=== PATIENT | female | born 1935 | race Caucasian/White ===

== ENCOUNTER 2017-11-12 07:57 | Emergency (ER) | payer MEDICARE ==
[2017-11-12 09:26] LABS: BASO # 0.1 x10^3/uL (0.0-0.2); BASO % 0 % (0-3); EOS % 0 % (0-3); HEMATOCRIT 37.4 % (36.0-47.0); HEMOGLOBIN 12.3 g/dL (12.0-15.5); LYMPH # 1.7 x10^3/uL (1.0-4.8); LYMPH % 10 % (24-48); MEAN CORPUSCULAR HEMOGLOBIN 26 pg (25-35); MEAN CORPUSCULAR HGB CONC 33 g/dL (31-37); MEAN CORPUSCULAR VOLUME 80 fL (79-100); MONO # 0.7 x10^3/uL (0.0-1.1); MONO % 4 % (0-9); NEUT # 14.2 x10^3uL (1.8-7.7); NEUT % 85 % (31-73); PLATELET COUNT 356 x10^3/uL (140-400); RED BLOOD COUNT 4.67 x10^6/uL (3.50-5.40); RED CELL DISTRIBUTION WIDTH 17.2 % (11.5-14.5); WHITE BLOOD COUNT 16.7 x10^3/uL (4.0-11.0)
[2017-11-12 09:28] LABS: ADD MAN DIFF? YES
[2017-11-12 09:33] LABS: ANION GAP 12 (6-14); BLOOD UREA NITROGEN 20 mg/dL (7-20); BUN/CREATININE RATIO 20 (6-20); CALCIUM 8.8 mg/dL (8.5-10.1); CARBON DIOXIDE 24 mmol/L (21-32); CHLORIDE 102 mmol/L (98-107); GFR 52.8; GLUCOSE 131 mg/dL (70-99); SODIUM 138 mmol/L (136-145)
[2017-11-12 09:39] LABS: ALBUMIN 3.6 g/dL (3.4-5.0); ALBUMIN/GLOBULIN RATIO 1.1 (1.0-1.7); ALK PHOS 89 U/L (46-116); ALT (SGPT) 18 U/L (14-59); AST (SGOT) 24 U/L (15-37); CREATINE KINASE 671 U/L (26-192); TOTAL BILIRUBIN 0.5 mg/dL (0.2-1.0)
[2017-11-12 09:43] LABS: TROPONINI < 0.017 ng/mL (0.000-0.055)
[2017-11-12] MEDS ORDERED: fentaNYL PF VIAL 100 MCG/2 ML VIAL IV (10:00)
[2017-11-12] MEDS ORDERED: fentaNYL PF VIAL 100 MCG/2 ML VIAL (10:08)
[2017-11-12] MEDS: fentaNYL PF VIAL 100 MCG/2 ML VIAL IV (10:12)
[2017-11-12 10:52] LABS: % BANDS 4 % (0-9); % BASOS 1 % (0-3); % EOS 1 % (0-5); % LYMPHS 12 % (24-48); % MONOS 1 % (0-10); % SEGS 81 % (35-66); PLT ESTIMATE ADEQUATE (ADEQUATE)
[2017-11-12 10:53] LABS: ANISOCYTOSIS SLIGHT; OVALOCYTES FEW
[2017-11-12 11:21] LABS: BILIRUBIN,URINE NEGATIVE (NEG); CLARITY,URINE CLEAR; COLOR,URINE YELLOW; GLUCOSE,URINE NEGATIVE (NEG); NITRITE,URINE NEGATIVE (NEG); PH,URINE 5.5; PROTEIN,URINE NEGATIVE (NEG-TRACE); UROBILINOGEN,URINE 0.2 mg/dL (0.2 mg/dL)
[2017-11-12 11:31] LABS: RBC,URINE 0 /HPF (0-2); SQUAMOUS EPITHELIAL CELL,UR FEW /LPF
[2017-11-12 11:32] LABS: BACTERIA,URINE FEW /HPF (0-FEW)
== END 2017-11-12 12:17 | disposition home or self-care (01) ==
LOC: ER 07:57
DX: I10 Essential (primary) hypertension (principal); F03.90 Unspecified dementia, unspecified severity, without behavioral disturbance, psychotic disturbance, mood disturbance, and anxiety; R41.0 Disorientation, unspecified; E78.00 Pure hypercholesterolemia, unspecified; M25.511 Pain in right shoulder; M25.462 Effusion, left knee; M25.562 Pain in left knee; F32.9 Major depressive disorder, single episode, unspecified; Q89.3 Situs inversus; Z88.5 Allergy status to narcotic agent; Z88.1 Allergy status to other antibiotic agents; Z91.041 Radiographic dye allergy status; W18.39XA Other fall on same level, initial encounter; Y93.89 Activity, other specified; Y99.8 Other external cause status; Y92.89 Other specified places as the place of occurrence of the external cause
CPT/HCPCS: 36415; 70450; 71045; 73030; 73562; 73700; 80053; 81001; 82550; 84484; 85007; 85025; 87086; 93005; 96374; 99285-25; J3010; P9612